=== PATIENT | female | born 1995 | race Caucasian/White ===

== ENCOUNTER 2016-03-29 10:08 | Emergency (ER) | payer OTHER ==
--- NOTE | 2016-03-29 11:24 | ED ---
General Adult HPI - General Chief complaint: Abdominal Pain Stated complaint: abd back pain Time Seen by Provider: 03/29/16 10:52 Source: patient, RN notes reviewed, old records reviewed Mode of arrival: ambulatory Limitations: no limitations - History of Present Illness Initial comments: This is a 20-year-old female here for evaluation today. This patient didn't stay for evaluation of abdominal pain and chronic bleeding. Patient has given childbirth is a about 3 months ago. Patient states she is having continuous bleeding since. She has follow-up with her OB who did deliver a baby and has had both vaginal exam and scheduled for follow-up appointment. Patient has had no imaging, patient and mainly concern for possible ovarian cancer. Patient has no urinary complaints, states she is sexually active and possibly could be again. - Related Data Home Medications Medication Instructions Recorded Confirmed Norethindrone [Kaur] 0.35 mg PO HS@2130 03/29/16 03/29/16 Previous Rx's Medication Instructions Recorded Nitrofurantoin Monohyd/M-Cryst 100 mg PO Q12HR #10 cap 03/29/16 [Macrobid] Allergies Allergy/AdvReac Type Severity Reaction Status Date / Time Penicillins Allergy Severe hives & SOB Verified 03/29/16 11:26 Review of Systems ROS Statement: Those systems with pertinent positive or pertinent negative responses have been documented in the HPI. ROS Other: All systems not noted in ROS Statement are negative. Past Medical History Past Medical History: No Reported History Additional Past Medical History / Comment(s): OB history: This is her first and she has been in and out of triage with contractions/pre term labor and hx of UTI. History of Any Multi-Drug Resistant Organisms: None Reported Past Surgical History: No Surgical Hx Reported Past Anesthesia/Blood Transfusion Reactions: No Reported Reaction Past Psychological History: Depression Additional Psychological History / Comment(s): never on meds Smoking Status: Former smoker Past Alcohol Use History: None Reported Past Drug Use History: None Reported - Past Family History Mother Family Medical History: Cancer, Hypertension Additional Family Medical History / Comment(s): ca- brain, lung, ovarian- not - diagnosed 2 years ago. Father Family Medical History: Cancer, Hypertension General Exam Limitations: no limitations General appearance: alert, in no apparent distress Head exam: Present: atraumatic, normocephalic, normal inspection Eye exam: Present: normal appearance, PERRL, EOMI. Absent: scleral icterus, conjunctival injection, periorbital swelling ENT exam: Present: normal exam, mucous membranes moist Neck exam: Present: normal inspection. Absent: tenderness, meningismus, lymphadenopathy Respiratory exam: Present: normal lung sounds bilaterally. Absent: respiratory distress, wheezes, rales, rhonchi, stridor Cardiovascular Exam: Present: regular rate, normal rhythm, normal heart sounds. Absent: systolic murmur, diastolic murmur, rubs, gallop, clicks GI/Abdominal exam: Present: soft, normal bowel sounds. Absent: distended, tenderness, guarding, rebound, rigid Extremities exam: Present: normal inspection, full ROM, normal capillary refill. Absent: tenderness, pedal edema, joint swelling, calf tenderness Back exam: Present: normal inspection Neurological exam: Present: alert, oriented X3, CN II-XII intact Psychiatric exam: Present: normal affect, normal mood Skin exam: Present: warm, dry, intact, normal color. Absent: rash Course Vital Signs 03/29/16 03/29/16 03/29/16 10:17 11:45 12:29 Temperature 97.8 F 97.9 F 97.5 F L Pulse Rate 74 71 69 Respiratory 18 14 14 Rate Blood Pressure 141/77 114/63 119/60 O2 Sat by Pulse 100 98 97 Oximetry Medical Decision Making - Medical Decision Making 20 female year with dysfunction uterine bleeding following , ultrasound is Negative Urine Positive for UTI We'll Treat, Patient Will Follow- Up with EMERGENCY MANAGEMENT SPECIALIST for Continued Evaluation and Treatment - Lab Data Lab Results 03/29/16 03/29/16 Range/Units 11:48 11:48 Urine Color Light Yellow Urine Appearance Cloudy H (Clear) Urine pH 6.0 (5.0-8.0) Ur Specific [place] 1.009 (1.001-1.035) Urine Protein Negative (Negative) Urine Glucose (UA) Negative (Negative) Urine Ketones Negative (Negative) Urine Blood Trace H (Negative) Urine Nitrate Positive H (Negative) Urine Bilirubin Negative (Negative) Urine Urobilinogen <2.0 (<2.0) mg/dL Ur Leukocyte Esterase Large H (Negative) Urine RBC 1 (0-5) /hpf Urine WBC 57 H (0-5) /hpf Ur Squamous Epith Cells 6 H (0-4) /hpf Urine Bacteria Rare H (None) /hpf Urine Mucus Rare H (None) /hpf Urine HCG, Qual Not Detected (Not Detectd) - Radiology Data Radiology results: report reviewed (Ultrasound pelvis is negative for acute disease), image reviewed Disposition Clinical Impression: UTI (urinary tract infection), Dysmenorrhea, DUB (dysfunctional uterine bleeding) Disposition: HOME SELF-CARE Condition: Good Instructions: Dysfunctional Uterine Bleeding (ED), Urinary Tract Infection in Women (ED) Prescriptions: Nitrofurantoin Monohyd/M-Cryst [Macrobid] 100 mg PO Q12HR #10 cap Referrals: None,Stated [Primary Care Provider] - 1-2 days
[2016-03-29 11:48] VITALS: RESP 14
[2016-03-29 12:32] VITALS: BP 119/60; PULSE 69; TEMP 97.5
[2016-03-29 12:53] LABS: Appearance,Urine Cloudy (Clear); Bacteria,Urine Rare /hpf; Bilirubin,Urine Negative (Negative); Glucose,Urine (UA) Negative (Negative); Ketones,Urine Negative (Negative); Leukocyte Esterase,Urine Large (Negative); Mucus,Urine Rare /hpf; Nitrite,Urine Positive (Negative); Particle Count 46723; Protein,Urine Negative (Negative); RBC,Urine 1 /hpf (0-5); Specific Gravity,Urine 1.009 (1.001-1.035); Squamous Epithelial Cell,Urine 6 /hpf (0-4); UA Billing (MACRO vs. MICRO) MICRO; Urobilinogen,Urine <2.0 mg/dL (<2.0); WBC,Urine 57 /hpf (0-5)
[2016-03-29] MEDS ORDERED: NITROFURANTOIN MONOHYD/M-CRYST 100 MG CAP PO STA (12:55)
--- NOTE | 2016-03-29 14:53 | US ---
EXAMINATION TYPE: US transvaginal DATE OF EXAM: 03/29/2016 12:37 PM COMPARISON: NONE CLINICAL HISTORY: Pelvic Pain, back pain TECHNIQUE: Transvaginal (TV) Date of LMP: Patient gave 12-12-15, no regular menses since before that EXAM MEASUREMENTS: Uterus: 8.2 x 5.2 x 3.8 cm cm Endometrial Stripe: 0.5 cm cm Right Ovary: 5.3 x 2.8 x 2.3 cm Left Ovary: 3.5 x 1.8 x 2.4 cm Grayscale, color Doppler, spectral Doppler imaging performed of the ovaries. Follicles are present bi laterally. There is color flow and vascular waveforms present bilaterally. 1. Uterus: Anteverted 2. Endometrium: 3. Right Ovary: prominent right ovary with multiple follicles notes 4. Left Ovary: wnl Spectral, color and waveform doppler imaging shows good arterial and venous flow within the ovaries ; there is no evidence for ovarian torsion. 5. Bilateral Adnexa: wnl 6. Posterior cul-de-sac: mild amount of free fluid IMPRESSION: No significant abnormality to account for patient's symptoms.
== END 2016-03-29 13:11 | disposition home or self-care (01) ==
LOC: EC 10:08
DX: N39.0 Urinary tract infection, site not specified (principal); N94.6 Dysmenorrhea, unspecified; N93.8 Other specified abnormal uterine and vaginal bleeding; Z79.3 Long term (current) use of hormonal contraceptives; Z88.0 Allergy status to penicillin; Z87.891 Personal history of nicotine dependence
CPT/HCPCS: 76830; 81001; 81025; 87491; 87591; 93975; 99284

== ENCOUNTER 2018-01-11 18:19 | Emergency (ER) | payer BC, OTHER ==
[2018-01-11 18:23] VITALS: RESP 18
[2018-01-11] MEDS ORDERED: SODIUM CHLORIDE 0.9% 1,000 ML IV STA (19:03)
--- NOTE | 2018-01-11 19:13 | ED ---
General Adult HPI - General Chief complaint: Abdominal Pain Stated complaint: poss cyst rupture Time Seen by Provider: 01/11/18 18:34 Source: patient, RN notes reviewed Mode of arrival: ambulatory Limitations: no limitations - History of Present Illness Initial comments: 22-year-old female presents to the emergency department for a chief complaint of lower abdominal pain and vaginal bleeding times one month. Patient describes the pain as a sharp stabbing pain in the right lower quadrant. She states this happens about 5 times per hour. She states it has been consistent over the past month. Patient states she has a history of ovarian cysts and states this feels similar. Patient also states she has vaginal bleeding. She states this has been consistent spotting over the past month. He shouldn't states that this is worsened after having sexual intercourse. Patient states she has an CARRIAGE SETTER appointment scheduled this coming month. She denies any fevers or chills. She denies any pain with urination. She denies any concern for sexually transmitted diseases. Denies any chance of Patient has been having normal bowel movements. Patient has no other complaints at this time including shortness of breath, chest pain, nausea or vomiting, headache, or visual changes. - Related Data Allergies Allergy/AdvReac Type Severity Reaction Status Date / Time Penicillins Allergy Severe hives & SOB Verified 01/11/18 18:43 Review of Systems ROS Statement: Those systems with pertinent positive or pertinent negative responses have been documented in the HPI. ROS Other: All systems not noted in ROS Statement are negative. Past Medical History Past Medical History: No Reported History Additional Past Medical History / Comment(s): OB history: This is her first and she has been in and out of triage with contractions/pre term labor and hx of UTI. History of Any Multi-Drug Resistant Organisms: None Reported Past Surgical History: No Surgical Hx Reported Past Anesthesia/Blood Transfusion Reactions: No Reported Reaction Past Psychological History: Depression Smoking Status: Current every day smoker Past Alcohol Use History: None Reported Past Drug Use History: None Reported - Past Family History Mother Family Medical History: Cancer, Hypertension Additional Family Medical History / Comment(s): ca- brain, lung, ovarian- not - diagnosed 2 years ago. Father Family Medical History: Cancer, Hypertension General Exam Limitations: no limitations General appearance: alert, in no apparent distress Head exam: Present: atraumatic, normocephalic, normal inspection Eye exam: Present: normal appearance, PERRL, EOMI. Absent: scleral icterus, conjunctival injection, periorbital swelling ENT exam: Present: normal exam, mucous membranes moist Neck exam: Present: normal inspection, full ROM. Absent: tenderness, meningismus, lymphadenopathy Respiratory exam: Present: normal lung sounds bilaterally. Absent: respiratory distress, wheezes, rales, rhonchi, stridor Cardiovascular Exam: Present: regular rate, normal rhythm, normal heart sounds. Absent: systolic murmur, diastolic murmur, rubs, gallop, clicks GI/Abdominal exam: Present: soft, tenderness (tenderness in the suprapubic and RLQ, no tenderness elsewhere in the lower abdomen), normal bowel sounds. Absent : distended, guarding, rebound, rigid, other (negative obturator, coon, rovsing) External exam: Present: normal external exam. Absent: erythema, swelling, lesions, lacerations, ecchymosis Speculum exam: Present: vaginal bleeding (minimal vaginal bleeding noted). Absent: erythema, vaginal discharge, cervical discharge By manual exam: Present: adnexal tenderness (right adnexal tenderness). Absent : cervical motion tenderness, adnexal mass, uterine enlargement, uterine tenderness Neurological exam: Present: alert, oriented X3, CN II-XII intact Psychiatric exam: Present: normal affect, normal mood Course Vital Signs 01/11/18 18:20 Temperature 98.6 F Pulse Rate 90 Respiratory 18 Rate Blood Pressure 121/79 O2 Sat by Pulse 100 Oximetry Medical Decision Making - Medical Decision Making 22-year-old female presents to the emergency department for a chief complaint of lower abdominal pain and vaginal bleeding times one month. Patient has a history of ovarian cysts. Patient states this feels like ovarian cysts. She states pain is worse after intercourse. On exam patient has mild right lower quadrant and suprapubic tenderness. Patient has minimal vaginal bleeding noted on pelvic exam. Gonorrhea and chlamydia pending at this time. Trichomonas negative. CBC and CMP are unremarkable. Urine does not show any evidence of infection. HCG is negative. Ultrasound shows 2.1 cm complex lesion noted likely representing involuting cyst on the left ovary. This could be the cause of patient's pain however as pain is on the right I did offer further imaging such as x-ray or computed tomography scan of the abdomen. Patient states she would rather follow up with her CAR[facility]AGE SETTER and return here if she has any worsening symptoms for further imaging. She will be discharged home with sections to take Motrin for pain and to follow up with CARRIAGE SETTER at her scheduled appointment or earlier if possible. Patient agrees to return here if she has worsening symptoms. - Lab Data Result diagrams: 01/11/18 19:40 01/11/18 19:40 Lab Results 01/11/18 01/11/18 01/11/18 Range/Units 19:40 19:40 19:40 WBC 7.9 (3.8-10.6) k/uL RBC 4.28 (3.80-5.40) m/uL Hgb 13.7 (11.4-16.0) gm/dL Hct 39.9 (34.0-46.0) % MCV 93.2 (80.0-100.0) fL MCH 32.0 (25.0-35.0) pg MCHC 34.3 (31.0-37.0) g/dL RDW 13.2 (11.5-15.5) % Plt Count 227 (150-450) k/uL Neutrophils % 63 % Lymphocytes % 27 % Monocytes % 6 % Eosinophils % 3 % Basophils % 0 % Neutrophils # 5.0 (1.3-7.7) k/uL Lymphocytes # 2.1 (1.0-4.8) k/uL Monocytes # 0.4 (0-1.0) k/uL Eosinophils # 0.2 (0-0.7) k/uL Basophils # 0.0 (0-0.2) k/uL Sodium 141 (137-145) mmol/L Potassium 3.9 (3.5-5.1) mmol/L Chloride 104 (98-107) mmol/L Carbon Dioxide 27 (22-30) mmol/L Anion Gap 10 mmol/L BUN 13 (7-17) mg/dL Creatinine 0.66 (0.52-1.04) mg/dL Est GFR (CKD-EPI)AfAm >90 (>60 ml/min/1.73 sqM) Est GFR (CKD-EPI)NonAf >90 (>60 ml/min/1.73 sqM) Glucose 96 (74-99) mg/dL Calcium 10.1 (8.4-10.2) mg/dL Total Bilirubin 0.3 (0.2-1.3) mg/dL AST 25 (14-36) U/L ALT 19 (9-52) U/L Alkaline Phosphatase 53 (38-126) U/L Total Protein 7.5 (6.3-8.2) g/dL Albumin 4.6 (3.5-5.0) g/dL Amylase 75 (30-110) U/L Lipase 136 (23-300) U/L Urine Color Light Yellow Urine Appearance Clear (Clear) Urine pH 6.0 (5.0-8.0) Ur Specific [place] 1.013 (1.001-1.035) Urine Protein Negative (Negative) Urine Glucose (UA) Negative (Negative) Urine Ketones Negative (Negative) Urine Blood Small H (Negative) Urine Nitrite Negative (Negative) Urine Bilirubin Negative (Negative) Urine Urobilinogen <2.0 (<2.0) mg/dL Ur Leukocyte Esterase Moderate H (Negative) Urine RBC 1 (0-5) /hpf Urine WBC 2 (0-5) /hpf Ur Squamous Epith Cells 3 (0-4) /hpf Urine Mucus Rare H (None) /hpf Urine HCG, Qual (Not Detectd) Trichomonas Ag (Rapid) (Negative) 01/11/18 01/11/18 Range/Units 19:40 19:40 WBC (3.8-10.6) k/uL RBC (3.80-5.40) m/uL Hgb (11.4-16.0) gm/dL Hct (34.0-46.0) % MCV (80.0-100.0) fL MCH (25.0-35.0) pg MCHC (31.0-37.0) g/dL RDW (11.5-15.5) % Plt Count (150-450) k/uL Neutrophils % % Lymphocytes % % Monocytes % % Eosinophils % % Basophils % % Neutrophils # (1.3-7.7) k/uL Lymphocytes # (1.0-4.8) k/uL Monocytes # (0-1.0) k/uL Eosinophils # (0-0.7) k/uL Basophils # (0-0.2) k/uL Sodium (137-145) mmol/L Potassium (3.5-5.1) mmol/L Chloride (98-107) mmol/L Carbon Dioxide (22-30) mmol/L Anion Gap mmol/L BUN (7-17) mg/dL Creatinine (0.52-1.04) mg/dL Est GFR (CKD-EPI)AfAm (>60 ml/min/1.73 sqM) Est GFR (CKD-EPI)NonAf (>60 ml/min/1.73 sqM) Glucose (74-99) mg/dL Calcium (8.4-10.2) mg/dL Total Bilirubin (0.2-1.3) mg/dL AST (14-36) U/L ALT (9-52) U/L Alkaline Phosphatase (38-126) U/L Total Protein (6.3-8.2) g/dL Albumin (3.5-5.0) g/dL Amylase (30-110) U/L Lipase (23-300) U/L Urine Color Urine Appearance (Clear) Urine pH (5.0-8.0) Ur Specific [place] (1.001-1.035) Urine Protein (Negative) Urine Glucose (UA) (Negative) Urine Ketones (Negative) Urine Blood (Negative) Urine Nitrite (Negative) Urine Bilirubin (Negative) Urine Urobilinogen (<2.0) mg/dL Ur Leukocyte Esterase (Negative) Urine RBC (0-5) /hpf Urine WBC (0-5) /hpf Ur Squamous Epith Cells (0-4) /hpf Urine Mucus (None) /hpf Urine HCG, Qual Not Detected (Not Detectd) Trichomonas Ag (Rapid) Negative (Negative) Disposition Clinical Impression: Dysfunctional uterine bleeding, Pelvic pain Disposition: HOME SELF-CARE Condition: Good Instructions: Dysfunctional Uterine Bleeding (ED), Pelvic Pain in Women (ED) Additional Instructions: Please take Motrin for pain. Please follow-up with your CARRIAGE SETTER at your appointment or earlier if possible. Follow-up with primary care. Return to the emergency department if you have any worsening symptoms. Is patient prescribed a controlled substance at d/c from ED?: No Referrals: Coby Wick MD [STAFF PHYSICIAN] - 1-2 days Time of Disposition: 21:02
[2018-01-11 19:59] LABS: Basophils % (A) 0 %; Eosinophils # (A) 0.2 k/uL (0-0.7); Eosinophils % (A) 3 %; HCT 39.9 % (34.0-46.0); HGB 13.7 gm/dL (11.4-16.0); Lymphocytes # (A) 2.1 k/uL (1.0-4.8); Lymphocytes % (A) 27 %; MCHC 34.3 g/dL (31.0-37.0); MCV 93.2 fL (80.0-100.0); Mean Platelet Volume 7.2; Monocytes # (A) 0.4 k/uL (0-1.0); Monocytes % (A) 6 %; Neutrophils % (A) 63 %; Platelet Count 227 k/uL (150-450); RBC 4.28 m/uL (3.80-5.40); RDW 13.2 % (11.5-15.5); WBC 7.9 k/uL (3.8-10.6)
[2018-01-11 20:01] LABS: Appearance,Urine Clear (Clear); Bilirubin,Urine Negative (Negative); Blood,Urine Small (Negative); Color,Urine Light Yellow; Glucose,Urine (UA) Negative (Negative); Ketones,Urine Negative (Negative); Leukocyte Esterase,Urine Moderate (Negative); Mucus,Urine Rare /hpf; Nitrite,Urine Negative (Negative); Protein,Urine Negative (Negative); RBC,Urine 1 /hpf (0-5); Specific Gravity,Urine 1.013 (1.001-1.035); Squamous Epithelial Cell,Urine 3 /hpf (0-4); Urobilinogen,Urine <2.0 mg/dL (<2.0); WBC,Urine 2 /hpf (0-5)
[2018-01-11 20:11] LABS: ALT 19 U/L (9-52); AST 25 U/L (14-36); Albumin 4.6 g/dL (3.5-5.0); Alkaline Phosphatase 53 U/L (38-126); Amylase 75 U/L (30-110); Anion Gap 10 mmol/L; Blood Urea Nitrogen 13 mg/dL (7-17); Calcium 10.1 mg/dL (8.4-10.2); Carbon Dioxide 27 mmol/L (22-30); Chloride 104 mmol/L (98-107); Glucose 96 mg/dL (74-99); Lipase 136 U/L (23-300); Potassium 3.9 mmol/L (3.5-5.1); Sodium 141 mmol/L (137-145); Total Bilirubin 0.3 mg/dL (0.2-1.3); Total Protein 7.5 g/dL (6.3-8.2)
--- NOTE | 2018-01-11 20:34 | US ---
EXAMINATION TYPE: US transvaginal DATE OF EXAM: 01/11/2018 COMPARISON: NONE CLINICAL HISTORY: Pain. RLQ pain x 1 month, irregular cycles Date of LMP: 12/27/2017 TECHNIQUE: TV. EXAM MEASUREMENTS: Uterus: 9.1 x 4.8 x 4.2 cm Endometrial Stripe: 1.6 cm Right Ovary: 4.7 x 2.4 x 2.6 cm Left Ovary: 4.4 x 4.2 x 2.5 cm 1. Uterus: Anteverted wnl 2. Endometrium: normal for cycle 3. Right Ovary: multiple follicles seen, wnl 4. Left Ovary: 2.1cm complex lesion noted; likely represents involuting cyst Spectral, color and waveform doppler imaging shows good arterial and venous flow within the ovaries ; there is no evidence for ovarian torsion. 5. Bilateral Adnexa: mild free fluid lt adnexa 6. Posterior cul-de-sac: mild free fluid toward the left IMPRESSION: No acute process.
[2018-01-11 21:40] VITALS: BP 117/73; PULSE 80; TEMP 98.2
[2018-01-13 08:14] LABS: N. gonorrhoeae,PCR Negative (Neg,Equiv); Neisseria Source Vagina
[2018-01-13 08:46] LABS: C. trachomatis,PCR Positive (Neg,Equiv); Chlamydia trachomatis Source Vagina
== END 2018-01-11 21:33 | disposition home or self-care (01) ==
LOC: EC 18:19
DX: R10.31 Right lower quadrant pain (principal); N93.8 Other specified abnormal uterine and vaginal bleeding; N83.292 Other ovarian cyst, left side; F17.200 Nicotine dependence, unspecified, uncomplicated; Z88.0 Allergy status to penicillin; Z80.41 Family history of malignant neoplasm of ovary
CPT/HCPCS: 36415; 76830; 80053; 81001; 81025; 82150; 83690; 85025; 87086; 87491; 87591; 87808; 93975; 96360; 99284

== ENCOUNTER → 2018-03-05 | Outpatient (CLI) | payer OTHER ==
[2018-03-06 04:17] LABS: HIV 1 AB Non-Reactive (Non-Reactive); HIV AB P24 Non-Reactive (Non-Reactive); HIV P24 AG Non-Reactive (Non-Reactive)
== END | disposition home or self-care (01) ==
LOC: LABWHC1 14:44
PROVIDERS: ATTEND Obstetrics & Gynecology
DX: Z11.3 Encounter for screening for infections with a predominantly sexual mode of transmission (principal); Z01.419 Encounter for gynecological examination (general) (routine) without abnormal findings
CPT/HCPCS: 36415; 86695; 86696; 87340; 87390

== ENCOUNTER 2019-08-22 20:21 | Emergency (ER) | payer OTHER ==
[2019-08-22 20:57] VITALS: TEMP 98.7
[2019-08-22] MEDS ORDERED: KETOROLAC 30 MG/ML 1 ML VIAL IVP STA (21:19)
[2019-08-22] MEDS ORDERED: SODIUM CHLORIDE 0.9% 1,000 ML IV STA (21:19)
[2019-08-22] MEDS ORDERED: ONDANSETRON 4 MG/2 ML VIAL IVP STA (21:19)
[2019-08-22 21:38] LABS: Basophils # (A) 0.1 k/uL (0-0.2); Basophils % (A) 1 %; Eosinophils # (A) 0.2 k/uL (0-0.7); Eosinophils % (A) 4 %; HCT 41.4 % (34.0-46.0); HGB 13.2 gm/dL (11.4-16.0); Lymphocytes # (A) 1.7 k/uL (1.0-4.8); Lymphocytes % (A) 29 %; MCH 30.1 pg (25.0-35.0); MCHC 31.8 g/dL (31.0-37.0); MCV 94.7 fL (80.0-100.0); Mean Platelet Volume 8.6; Monocytes # (A) 0.4 k/uL (0-1.0); Monocytes % (A) 7 %; Neutrophils # (A) 3.2 k/uL (1.3-7.7); Neutrophils % (A) 57 %; Platelet Count 223 k/uL (150-450); RBC 4.37 m/uL (3.80-5.40); RDW 12.6 % (11.5-15.5); WBC 5.7 k/uL (3.8-10.6)
--- NOTE | 2019-08-22 21:42 | ED ---
Abdominal Pain HPI - General Chief Complaint: Abdominal Pain Stated Complaint: Abdominal pain Time Seen by Provider: 08/22/19 21:00 Source: patient Mode of arrival: ambulatory Limitations: no limitations - History of Present Illness Initial Comments: Patient is a 24-year-old female presents emergency Department with complaints of abdominal pain, nausea, vomiting. Patient states she's been noticing increased abdominal discomfort over the past 2 weeks but over the past 3 days she states the pain has intensified. She states the last 3 days she is also not been able to eat or drink and has been having nausea and vomiting. She states she's been having regular bowel movements. She denies any fever or chills. She states she does have history of ovarian cyst. She denies any previous abdominal surgeries. She denies any chest pain or shortness of breath. She denies being at this time. She has no further complaints at this time. Upon arrival to the ER, her vital signs are stable. - Related Data Previous Rx's Medication Instructions Recorded Cephalexin [Keflex] 500 mg PO BID 5 Days #10 cap 08/22/19 Allergies Allergy/AdvReac Type Severity Reaction Status Date / Time Penicillins Allergy Severe hives & SOB Verified 08/22/19 21:43 Review of Systems ROS Statement: Those systems with pertinent positive or pertinent negative responses have been documented in the HPI. ROS Other: All systems not noted in ROS Statement are negative. Past Medical History Past Medical History: No Reported History Additional Past Medical History / Comment(s): OB history: This is her first and she has been in and out of triage with contractions/pre term labor and hx of UTI. History of Any Multi-Drug Resistant Organisms: None Reported Past Surgical History: No Surgical Hx Reported Past Anesthesia/Blood Transfusion Reactions: No Reported Reaction Past Psychological History: Depression Smoking Status: Light tobacco smoker Past Alcohol Use History: None Reported Past Drug Use History: None Reported - Past Family History Mother Family Medical History: Cancer, Hypertension Additional Family Medical History / Comment(s): ca- brain, lung, ovarian- not - diagnosed 2 years ago. Father Family Medical History: Cancer, Hypertension General Exam - General Exam Comments Initial Comments: GENERAL: Well-appearing, well-nourished and in no acute distress. HEAD: Atraumatic, normocephalic. EYES: Pupils equal round and reactive to light, extraocular movements intact, sclera anicteric, conjunctiva are normal. ENT: TMs normal, nares patent, oropharynx clear without exudates. Moist mucous membranes. NECK: Normal range of motion, supple without lymphadenopathy or JVD. LUNGS: Breath sounds clear to auscultation bilaterally and equal. No wheezes rales or rhonchi. HEART: Regular rate and rhythm without murmurs, rubs or gallops. ABDOMEN: Tender to palpation of the left lower quadrant, suprapubic, increased tenderness on the right lower quadrant. Soft, normoactive bowel sounds. No guarding, no rebound. No masses appreciated. : Deferred EXTREMITIES: Normal range of motion, no pitting or edema. No clubbing or cyanosis. NEUROLOGICAL: Normal speech, normal gait. PSYCH: Normal mood, normal affect. SKIN: Warm, Dry, normal turgor, no rashes or lesions noted. Limitations: no limitations Course Vital Signs 08/22/19 20:54 Temperature 98.7 F Pulse Rate 86 Respiratory 16 Rate Blood Pressure 118/82 O2 Sat by Pulse 99 Oximetry Medical Decision Making - Medical Decision Making Patient is a 24-year-old female here for abdominal pain, nausea, vomiting 3 days. Her vitals are stable. Exam reveals tenderness in the left lower quadrant, suprapubic, more tenderness on the right lower quadrant. Labwork shows no acute abnormalities, lactic acid is normal, lipase is normal, urine does show a large amount leukocyte Estrace, she is not . CT of the abdomen shows no evidence for appendicitis, no other acute findings. Patient was given pain control, Zofran and fluids. She does report improvement in her symptoms. I discussed with patient that this could be a mild UTI and/or a viral gastroenteritis.. Patient will be started on Keflex. She is in agreement with this plan of care. She'll follow-up with her PCP. Patient is stable for discharge. Return parameters were discussed with the patient she verbalized understanding. - Lab Data Result diagrams: 08/22/19 21:25 08/22/19 21: Lab Results 08/22/19 08/22/19 08/22/19 Range/Units 21:25 21:25 21:25 WBC 5.7 (3.8-10.6) k/uL RBC 4.37 (3.80-5.40) m/uL Hgb 13.2 (11.4-16.0) gm/dL Hct 41.4 (34.0-46.0) % MCV 94.7 (80.0-100.0) fL MCH 30.1 (25.0-35.0) pg MCHC 31.8 (31.0-37.0) g/dL RDW 12.6 (11.5-15.5) % Plt Count 223 (150-450) k/uL Neutrophils % 57 % Lymphocytes % 29 % Monocytes % 7 % Eosinophils % 4 % Basophils % 1 % Neutrophils # 3.2 (1.3-7.7) k/uL Lymphocytes # 1.7 (1.0-4.8) k/uL Monocytes # 0.4 (0-1.0) k/uL Eosinophils # 0.2 (0-0.7) k/uL Basophils # 0.1 (0-0.2) k/uL Sodium (137-145) mmol/L Potassium (3.5-5.1) mmol/L Chloride (98-107) mmol/L Carbon Dioxide (22-30) mmol/L Anion Gap mmol/L BUN (7-17) mg/dL Creatinine (0.52-1.04) mg/dL Est GFR (CKD-EPI)AfAm (>60 ml/min/1.73 sqM) Est GFR (CKD-EPI)NonAf (>60 ml/min/1.73 sqM) Glucose (74-99) mg/dL Plasma Lactic Acid Arnold (0.7-2.0) mmol/L Calcium (8.4-10.2) mg/dL Total Bilirubin (0.2-1.3) mg/dL AST (14-36) U/L ALT (4-34) U/L Alkaline Phosphatase (38-126) U/L Total Protein (6.3-8.2) g/dL Albumin (3.5-5.0) g/dL Amylase (30-110) U/L Lipase (23-300) U/L Urine Color Yellow Urine Appearance Turbid H (Clear) Urine pH 6.5 (5.0-8.0) Ur Specific Willow 1.017 (1.001-1.035) Urine Protein Negative (Negative) Urine Glucose (UA) Negative (Negative) Urine Ketones Negative (Negative) Urine Blood Negative (Negative) Urine Nitrite Negative (Negative) Urine Bilirubin Negative (Negative) Urine Urobilinogen <2.0 (<2.0) mg/dL Ur Leukocyte Esterase Large H (Negative) Urine RBC 5 (0-5) /hpf Urine WBC 4 (0-5) /hpf Ur Squamous Epith Cells 3 (0-4) /hpf Amorphous Sediment Moderate H (None) /hpf Urine Mucus Occasional H (None) /hpf Urine HCG, Qual Not Detected (Not Detectd) 08/22/19 08/22/19 Range/Units 21:25 21:25 WBC (3.8-10.6) k/uL RBC (3.80-5.40) m/uL Hgb (11.4-16.0) gm/dL Hct (34.0-46.0) % MCV (80.0-100.0) fL MCH (25.0-35.0) pg MCHC (31.0-37.0) g/dL RDW (11.5-15.5) % Plt Count (150-450) k/uL Neutrophils % % Lymphocytes % % Monocytes % % Eosinophils % % Basophils % % Neutrophils # (1.3-7.7) k/uL Lymphocytes # (1.0-4.8) k/uL Monocytes # (0-1.0) k/uL Eosinophils # (0-0.7) k/uL Basophils # (0-0.2) k/uL Sodium 139 (137-145) mmol/L Potassium 4.4 (3.5-5.1) mmol/L Chloride 105 (98-107) mmol/L Carbon Dioxide 26 (22-30) mmol/L Anion Gap 8 mmol/L BUN 13 (7-17) mg/dL Creatinine 0.67 (0.52-1.04) mg/dL Est GFR (CKD-EPI)AfAm >90 (>60 ml/min/1.73 sqM) Est GFR (CKD-EPI)NonAf >90 (>60 ml/min/1.73 sqM) Glucose 87 (74-99) mg/dL Plasma Lactic Acid Arnold 1.0 (0.7-2.0) mmol/L Calcium 9.8 (8.4-10.2) mg/dL Total Bilirubin 0.2 (0.2-1.3) mg/dL AST 22 (14-36) U/L ALT 11 (4-34) U/L Alkaline Phosphatase 51 (38-126) U/L Total Protein 7.0 (6.3-8.2) g/dL Albumin 4.5 (3.5-5.0) g/dL Amylase 58 (30-110) U/L Lipase 118 (23-300) U/L Urine Color Urine Appearance (Clear) Urine pH (5.0-8.0) Ur Specific Willow (1.001-1.035) Urine Protein (Negative) Urine Glucose (UA) (Negative) Urine Ketones (Negative) Urine Blood (Negative) Urine Nitrite (Negative) Urine Bilirubin (Negative) Urine Urobilinogen (<2.0) mg/dL Ur Leukocyte Esterase (Negative) Urine RBC (0-5) /hpf Urine WBC (0-5) /hpf Ur Squamous Epith Cells (0-4) /hpf Amorphous Sediment (None) /hpf Urine Mucus (None) /hpf Urine HCG, Qual (Not Detectd) Disposition Clinical Impression: Lower abdominal pain, Nausea & vomiting, UTI (urinary tract infection) Disposition: HOME SELF-CARE Condition: Stable Instructions (If sedation given, give patient instructions): Abdominal Pain (ED) Additional Instructions: Please return to the Emergency Department if symptoms worsen or any other concerns. Take antibiotic as prescribed. Follow-up with PCP if symptoms persist. Prescriptions: Cephalexin [Keflex] 500 mg PO BID 5 Days #10 cap Is patient prescribed a controlled substance at d/c from ED?: No Referrals: None,Stated [Primary Care Provider] - 1-2 days
[2019-08-22 21:51] LABS: ALT 11 U/L (4-34); AST 22 U/L (14-36); African American GFR (CKD) >90 (>60 ml/min/1.73 sqM); Albumin 4.5 g/dL (3.5-5.0); Alkaline Phosphatase 51 U/L (38-126); Amylase 58 U/L (30-110); Anion Gap 8 mmol/L; Blood Urea Nitrogen 13 mg/dL (7-17); Calcium 9.8 mg/dL (8.4-10.2); Carbon Dioxide 26 mmol/L (22-30); Chloride 105 mmol/L (98-107); Glucose 87 mg/dL (74-99); Non-African American GFR(CKD) >90 (>60 ml/min/1.73 sqM); Potassium 4.4 mmol/L (3.5-5.1); Sodium 139 mmol/L (137-145); Total Bilirubin 0.2 mg/dL (0.2-1.3)
[2019-08-22 21:54] LABS: Amorphous Sediment,Urine Moderate /hpf; Appearance,Urine Turbid (Clear); Bilirubin,Urine Negative (Negative); Blood,Urine Negative (Negative); Color,Urine Yellow; Glucose,Urine (UA) Negative (Negative); Ketones,Urine Negative (Negative); Leukocyte Esterase,Urine Large (Negative); Mucus,Urine Occasional /hpf; Nitrite,Urine Negative (Negative); PH, Urine 6.5 (5.0-8.0); Protein,Urine Negative (Negative); RBC,Urine 5 /hpf (0-5); Specific Gravity,Urine 1.017 (1.001-1.035); Squamous Epithelial Cell,Urine 3 /hpf (0-4); Urobilinogen,Urine <2.0 mg/dL (<2.0); WBC,Urine 4 /hpf (0-5)
--- NOTE | 2019-08-22 22:29 | CT ---
EXAMINATION TYPE: CT abdomen pelvis w con DATE OF EXAM: 08/22/2019 COMPARISON: None HISTORY: Right lower quadrant pain. CT DLP: 679.4 mGycm Automated exposure control for dose reduction was used. CONTRAST: Performed with IV Contrast, patient injected with 100 mL of Isovue 300. Lung bases are clear. There is no pleural effusion. Heart size is normal. Liver spleen stomach pancreas appear normal. Gallbladder is contracted. Bile ducts are not dilated. T here is no adrenal mass. Kidneys show satisfactory contrast opacification. There is no hydronephrosis . Ureters are not dilated. Bladder distends smoothly. There is no inguinal hernia. Lumbar vertebra pierre ve normal spacing and alignment. Posterior elements are intact. Sacroiliac joints appear normal. Bony pelvis is intact. Uterus is anteverted. There is no pelvic mass. There is no mesenteric edema. There is no ascites or free air. There is no sign of bowel obstruction. Appendix appears normal. Appendix is inferior and medial and measures up to 6 mm. IMPRESSION: Normal CT scan abdomen and pelvis. Normal appendix.
[2019-08-22] MEDS ORDERED: ONDANSETRON 4 MG ODT STARTER PACK 2 TAB BTL PO STA (22:43)
[2019-08-22 23:10] VITALS: BP 120/78; PULSE 80; RESP 18
== END 2019-08-22 23:10 | disposition home or self-care (01) ==
LOC: EC 20:21
DX: N39.0 Urinary tract infection, site not specified (principal); F17.210 Nicotine dependence, cigarettes, uncomplicated; Z88.0 Allergy status to penicillin; Z87.42 Personal history of other diseases of the female genital tract
CPT/HCPCS: 36415; 80053; 82150; 83605; 83690; 85025; 81001; 81025; 74177; 99284; 96374; 96375; 96361 ×2; J2405; J1885; S0119; Q9967

== ENCOUNTER 2021-02-23 07:05 | Day surgery (SDC) | payer OTHER ==
[2021-02-15 18:37] VITALS: BMI 25.0
[~2021-02-23 07:05] MED LIST: DEXAMETHASONE SOD PHOSPHATE 4 MG/ML 1 ML VIAL IV ONE; HYDROmorphone 0.5 MG/0.5 ML SYRINGE IVP PRN; LACTATED RINGERS 1,000 ML IV SCH; LIDOCAINE 1% (10MG/ML) FOR IV START INTRADERMA PRN; ONDANSETRON 4 MG/2 ML VIAL IVP ONE; Pre Op ABX Message 1 EACH MISC MISCELLANE ONE
--- NOTE | 2021-02-23 07:15 | P.HPOB ---
History of Present Illness H&P Date: 02/23/21 Chief Complaint: BROOKLYN 2 and pelvic pain 25-year-old presents for loop electrocautery excision procedure for an ASCUS Pap with BROOKLYN-2 on colposcopy, as well as a right neck cystic laparoscopy and possible cauterization of endometriosis due to ongoing pelvic pain. Review of Systems All systems: negative Constitutional: Denies chills, Denies fever Eyes: denies blurred vision, denies pain Ears, nose, mouth and throat: Denies headache, Denies sore throat Cardiovascular: Denies chest pain, Denies shortness of breath Respiratory: Denies cough Gastrointestinal: Denies abdominal pain, Denies diarrhea, Denies nausea, Denies vomiting Genitourinary: Denies dysuria, Denies hematuria Musculoskeletal: Denies myalgias Integumentary: Denies pruritus, Denies rash Neurological: Denies numbness, Denies weakness Psychiatric: Denies anxiety, Denies depression Endocrine: Denies fatigue, Denies weight change Past Medical History Past Medical History: Asthma Additional Past Medical History / Comment(s): Asthma as child. Hypoglycemic. Poss endometriosis, abn PAP tests, abd pain, heavy menses History of Any Multi-Drug Resistant Organisms: None Reported Past Surgical History: No Surgical Hx Reported Additional Past Surgical History / Comment(s): [place] teeth. Colonoscopy Past Anesthesia/Blood Transfusion Reactions: Motion Sickness Smoking Status: Former smoker, Vaper - Past Family History Mother Family Medical History: Cancer, Hypertension Additional Family Medical History / Comment(s): Cervical cancer; poss blood clot. (Mat Grandmother had ca- brain, lung, ovarian) Father Family Medical History: Cancer, Hypertension Additional Family Medical History / Comment(s): skin, lung cancer Medications and Allergies Home Medications Medication Instructions Recorded Confirmed Type Ergocalciferol [Vitamin D2 (1250 1,250 mcg PO WE 02/15/21 02/15/21 History Mcg = 75677 Iu)] Ferrous Sulfate [Feosol] 325 mg PO DAILY 02/15/21 02/15/21 History traMADol HCl [Ultram] 50 mg PO Q6HR PRN 02/15/21 02/15/21 History Allergies Allergy/AdvReac Type Severity Reaction Status Date / Time Penicillins Allergy Severe hives & SOB Verified 02/15/21 18:16 Exam Osteopathic Statement: *. No significant issues noted on an osteopathic structural exam other than those noted in the History and Physical/Consult. Heart: Regular rate and rhythm Lungs: Clear to auscultation bilaterally Abdomen: Soft, nontender Extremities: Negative Homans sign Assessment and Plan (1) BROOKLYN II (cervical intraepithelial neoplasia II) Current Visit: Yes Status: Acute Code(s): N87.1 - MODERATE CERVICAL DY SPLASIA SNOMED Code(s): 450529543 (2) Pelvic pain Current Visit: Yes Status: Acute Code(s): R10.2 - PELVIC AND PERINEAL PAIN SNOMED Code(s): 45105822 Plan: 1. Loop electrocautery excision procedure, laparoscopy with possible cauterization of endometriosis
[2021-02-23] MEDS ORDERED: SCOPOLAMINE 1.5MG/72HR PATCH TRANSDERM ONE (07:46)
[2021-02-23] MEDS ORDERED: LIDOCAINE 1% INJ 10MG/ML (20 ML MDV) ONE (08:25)
[2021-02-23] MEDS ORDERED: PROPOFOL 10 MG/ML 20 ML VIAL IV ONE (08:25)
[2021-02-23] MEDS ORDERED: SUCCINYLCHOLINE CHLORIDE 100 MG/5 ML SYR IV ONE (08:25)
[2021-02-23] MEDS ORDERED: fentaNYL (PF) 50 MCG/ML 2 ML AMP ONE (08:25)
[2021-02-23] MEDS ORDERED: KETOROLAC 15 MG/ML 1 ML VIAL ONE (08:25)
[2021-02-23] MEDS ORDERED: MIDAZOLAM 2 MG/2 ML VIAL ONE (08:25)
[2021-02-23] MEDS ORDERED: BUPIVACAINE (PF) 0.25% 30 ML VIAL SQ ONE (09:04)
--- NOTE | 2021-02-23 09:12 | P.OP ---
Date of Procedure: 02/23/21 Preoperative Diagnosis: 1. BROOKLYN 2 2. pelvic pain Postoperative Diagnosis: 1. BROOK[place] 2 2. pelvic pain 3. endometriosis Procedure(s) Performed: LEEP and laparoscopy with cauterization of endometriosis Anesthesia: PILAR Surgeon: Cindi Valdes Estimated Blood Loss (ml): 3 IV fluids (ml): 200 Urine output (ml): 15 Pathology: other (Cervical cone) Condition: stable Disposition: PACU Operative Findings: Normal uterus, tubes, ovaries. There was a small amount of endometriosis in the posterior cul-de-sac and in the ovarian fossa. Description of Procedure: Patient is taken the operating room and general anesthesia was obtained without difficulty. She is prepped draped in normal sterile fashion dorsal lithotomy position, legs placed in the Holger stirrups. Bladder was drained of all urine. A coated bivalve speculum was placed in the vagina and dissection. The 2 cm loop cautery was used to obtain a cervical specimen. The first swipe was the anterior lip, the second swipe was posterior lip. The ball cautery was then used to obtain excellent hemostasis. The kroner manipulator was then placed. Attention was then turned to the abdomen and gloves were changed. A 10 mm infraumbilical incision was made the scalpel and 10 mm optical trocar was placed under direct visualization. A 5 mm suprapubic incision was made and a 5 mm optical trocar was placed under direct visualization. Survey of the pelvis revealed a normal uterus, tubes and ovaries. There is no scarring in her pelvis, there is some endometriosis and defects in the peritoneum and the posterior cul-de-sac. These areas were then cauterized with the cautery. All instruments removed from the pelvis and vagina. The 10 mm infraumbilical incision was closed with Vicryl and the fascial layer and then 4-0 Vicryl in a subcuticular fashion. The 5 mm incision was closed with 4-0 Vicryl subcuticular fashion. Patient to our procedure well, sponge and instrument counts correct 2. She was taken to recovery in stable condition.
[2021-02-23 09:23] VITALS: RESP 16; TEMP 97.2
[2021-02-23 10:37] VITALS: BP 101/62; PULSE 63
== END 2021-02-23 10:58 | disposition home or self-care (01) ==
LOC: OR 07:05
PROVIDERS: ATTEND Obstetrics & Gynecology
DX: N94.6 Dysmenorrhea, unspecified (principal); N80.9 Endometriosis, unspecified; N72 Inflammatory disease of cervix uteri; N92.0 Excessive and frequent menstruation with regular cycle; N87.1 Moderate cervical dysplasia; R10.2 Pelvic and perineal pain; J45.909 Unspecified asthma, uncomplicated; F32.A Depression, unspecified; E16.2 Hypoglycemia, unspecified; F41.9 Anxiety disorder, unspecified; Z87.891 Personal history of nicotine dependence; Z79.891 Long term (current) use of opiate analgesic; Z88.0 Allergy status to penicillin
CPT/HCPCS: 81025; 88307; 57522; J2250; J1100; J2405; J2001; J3010; J1885; J0330; J2704; J1170

== ENCOUNTER 2021-03-11 17:44 | Emergency (ER) | payer OTHER ==
[2021-03-11] MEDS ORDERED: FERRIC SUBSULFATE (MONSELS) JAR TOPICAL ONE ×3 (18:41→18:55)
[2021-03-11 18:59] VITALS: TEMP 98.6
[2021-03-11 19:11] LABS: Basophils % (A) 1 %; Eosinophils # (A) 0.1 k/uL (0-0.7); Eosinophils % (A) 1 %; HCT 37.6 % (34.0-46.0); HGB 12.3 gm/dL (11.4-16.0); Lymphocytes % (A) 16 %; MCHC 32.6 g/dL (31.0-37.0); MCV 94.9 fL (80.0-100.0); Mean Platelet Volume 7.7; Monocytes # (A) 0.3 k/uL (0-1.0); Monocytes % (A) 5 %; Neutrophils # (A) 4.8 k/uL (1.3-7.7); Neutrophils % (A) 76 %; Platelet Count 241 k/uL (150-450); RBC 3.96 m/uL (3.80-5.40); WBC 6.3 k/uL (3.8-10.6)
[2021-03-11 19:16] LABS: Appearance,Urine Clear (Clear); Bilirubin,Urine Negative (Negative); Blood,Urine Large (Negative); Color,Urine Light Red; Glucose,Urine (UA) Negative (Negative); Ketones,Urine Negative (Negative); Leukocyte Esterase,Urine Moderate (Negative); Mucus,Urine Occasional /hpf; Nitrite,Urine Negative (Negative); PH, Urine 6.5 (5.0-8.0); Protein,Urine 1+ (Negative); RBC,Urine >182 /hpf (0-5); Specific Gravity,Urine 1.022 (1.001-1.035); Squamous Epithelial Cell,Urine 2 /hpf (0-4); Urobilinogen,Urine <2.0 mg/dL (<2.0); WBC,Urine 28 /hpf (0-5)
[2021-03-11 19:22] LABS: Potassium 4.2 mmol/L (3.5-5.1)
[2021-03-11 19:23] LABS: African American GFR (CKD) >90 (>60 ml/min/1.73 sqM); Anion Gap 9 mmol/L; Blood Urea Nitrogen 13 mg/dL (7-17); Calcium 9.2 mg/dL (8.4-10.2); Carbon Dioxide 21 mmol/L (22-30); Chloride 108 mmol/L (98-107); Glucose 90 mg/dL (74-99); Magnesium 1.9 mg/dL (1.6-2.3); Non-African American GFR(CKD) >90 (>60 ml/min/1.73 sqM); Sodium 138 mmol/L (137-145)
[2021-03-11 19:26] LABS: Partial Thromboplastin Time 27.5 sec (22.0-30.0); Prothrombin Time 10.7 sec (9.0-12.0)
[2021-03-11 19:30] LABS: HCG,Qualitative Serum Not Detected
--- NOTE | 2021-03-11 20:32 | ED ---
General Adult HPI - General Chief complaint: Vaginal Bleeding Stated complaint: Vaginal bleeding Time Seen by Provider: 03/11/21 18:06 Source: patient, RN notes reviewed, old records reviewed Mode of arrival: ambulatory Limitations: no limitations - History of Present Illness Initial comments: Patient is a 25-year-old female with past medical history remarkable for recent LEEP and laparoscopy with cauterization of endometriosis on 02/23/2021. Since th at time, she has been having multiple bloodsoaked pads throughout the day. She states this is been a recurrent issue, and has not improved. She nurses occasional lightheadedness. Denies any other acute complaints at this time. Denies any other vaginal discharge or bleeding. Denies any urinary complaints, abdominal pain, nausea, vomiting, diarrhea. Denies any fevers or chills. She'll follow up with Dr. Valdes in the office on 03/09/2021, at which time Monsel solution was applied to the patient's cervix. She states that this improved for bleeding for a short period time, however and noticed bleeding afterwards again with clots. Called the office today and she was instructed to come the emergency department for further evaluation. - Related Data Previous Rx's Medication Instructions Recorded Sulfamethox-Tmp 800-160Mg [Bactrim 1 tab PO Q12HR 5 Days #10 tab 03/11/21 DS 800-160 mg] Allergies Allergy/AdvReac Type Severity Reaction Status Date / Time Penicillins Allergy Severe hives & SOB Verified 03/11/21 18:49 Review of Systems ROS Statement: Those systems with pertinent positive or pertinent negative responses have been documented in the HPI. Review of Systems: CONST: Denies fever EYES: Denies blurry vision ENT: Denies nasal congestion C/V: Denies Chest pain RESP: Denies shortness of breath GI: Denies abdominal pain : Endorses vaginal bleeding SKIN: Denies rash. MSK: Denies joint pain. NEURO: Denies headache ROS Other: All systems not noted in ROS Statement are negative. Past Medical History Past Medical History: Asthma Additional Past Medical History / Comment(s): Asthma as child. Hypoglycemic. Poss endometriosis, abn PAP tests, abd pain, heavy menses History of Any Multi-Drug Resistant Organisms: None Reported Past Surgical History: No Surgical Hx Reported Additional Past Surgical History / Comment(s): [place] teeth. Colonoscopy, LEEP Past Anesthesia/Blood Transfusion Reactions: Motion Sickness Past Psychological History: Anxiety, Depression Smoking Status: Former smoker, Vaper Past Alcohol Use History: None Reported Past Drug Use History: None Reported - Past Family History Mother Family Medical History: Cancer, Hypertension Additional Family Medical History / Comment(s): Cervical cancer; poss blood clot. (Mat Grandmother had ca- brain, lung, ovarian) Father Family Medical History: Cancer, Hypertension Additional Family Medical History / Comment(s): skin, lung cancer General Exam - General Exam Comments Initial Comments: General: Appears in no acute distress. HEAD: Normal with no signs of head trauma. EYES: PERRLA, EOMI, conjunctiva normal, no discharge. ENT: Hearing grossly intact, normal oropharynx. RESPIRATORY: Clear breath sounds bilaterally. No wheezes, rales, or rhonchi. C/V: Tachycardic in triage, improved in the room. S1 and S2 auscultated, no edema, peripheral pulses 2+ and intact throughout ABD: Abd is soft, nontender, nondistended EXT: Normal range of motion, no obvious deformity SKIN: No rashes or lesions observed on exposed skin. NEURO: Alert and oriented 4. No focal deficits. Limitations: no limitations Course Vital Signs 03/11/21 03/11/21 03/11/21 17:55 18:58 20:51 Temperature 100.2 F H 98.6 F Pulse Rate 118 H 77 Respiratory 20 14 Rate Blood Pressure 116/80 106/63 O2 Sat by Pulse 98 99 Oximetry Medical Decision Making - Medical Decision Making Based on patient's presentation and physical exam, I'm concerned for possible dysfunctional uterine bleeding, as well as anemia. We will obtain basic laboratory studies, urinalysis, perform a pelvic exam. Patient was in agreement this plan. She declines analgesia at this time. I did speak with the on-call SOLAR DESIGNER covering for Dr. Valdes, Dr. Haas who was in agreement with the pelvic exam, and recommended that we apply yu swabs with Monsel solution to stop the bleeding. Uterine ultrasound also be obtained to rule out the possibility of i ntrauterine bleeding. I discussed with the patient and she requests the ultrasound if possible in addition to the pelvic. I believe this is reasonable. This will be obtained following pelvic exam. Pelvic exam was performed by myself in the presence of a female staff member. Pelvic revealed clot formation over the cervix with mildly active bleeding sites over the anterior and posterior aspect of the cervix. Monsel solution was applied with swabs with direct pressure from swabs, and bleeding did stop. Patient's laboratory studies were remarkable for a normal hemoglobin of 12.3. Coags were within normal limits. Urinalysis is concerning for 8 WBCs, large amount of blood which is likely secondary to some bleeding, as well as moderate leukocyte esterase. Remainder of the labs are unremarkable.Patient's ultrasound revealed post ablation changes of Endometrium without evidence for acute pelvic process. On reevaluation, patient remains stable. Vital signs obtained at triage her suspect, and repeat vital signs are within normal limits. Patient is not febrile, heart rate is improved. Remaining vital signs are stable and within normal limits at this time. I discussed the findings of the patient's imaging and laboratory studies with her. I would like to cover her for possible UTI and she was in agreement this plan. She'll be given a dose of Bactrim prior to discharge as well as a prescription for Bactrim twice a day for 5 days. She is a follow-up appointment Dr. Valdes next Sunday. She was in agreement with discharge home.We discussed monitoring her bleeding and return to emergency department if she has any concerns. I will provide the patient with a prescription for Bactrim DS for 5 days twice a day. I instructed the patient to follow up with their PCP in the next 3 days. I provided contact information for follow up with Dr. Valdes. I explained that the patient should return to the emergency department if they experience any worsening symptoms. Strict return precautions were discussed with the patient. The patient expressed understanding of these instructions. I answered all questions that the patient had. The patient was discharged home in good condition with their prescriptions and follow up information. - Lab Data Result diagrams: 03/11/21 19:00 03/11/21 19:00 Lab Results 03/11/21 03/11/21 03/11/21 Range/Units 19:00 19:00 19:00 WBC 6.3 (3.8-10.6) k/uL RBC 3.96 (3.80-5.40) m/uL Hgb 12.3 (11.4-16.0) gm/dL Hct 37.6 (34.0-46.0) % MCV 94.9 (80.0-100.0) fL MCH 31.0 (25.0-35.0) pg MCHC 32.6 (31.0-37.0) g/dL RDW 13.0 (11.5-15.5) % Plt Count 241 (150-450) k/uL MPV 7.7 Neutrophils % 76 % Lymphocytes % 16 % Monocytes % 5 % Eosinophils % 1 % Basophils % 1 % Neutrophils # 4.8 (1.3-7.7) k/uL Lymphocytes # 1.0 (1.0-4.8) k/uL Monocytes # 0.3 (0-1.0) k/uL Eosinophils # 0.1 (0-0.7) k/uL Basophils # 0.0 (0-0.2) k/uL PT (9.0-12.0) sec INR (<1.2) APTT (22.0-30.0) sec Sodium 138 (137-145) mmol/L Potassium 4.2 (3.5-5.1) mmol/L Chloride 108 H (98-107) mmol/L Carbon Dioxide 21 L (22-30) mmol/L Anion Gap 9 mmol/L BUN 13 (7-17) mg/dL Creatinine 0.52 (0.52-1.04) mg/dL Est GFR (CKD-EPI)AfAm >90 (>60 ml/min/1.73 sqM) Est GFR (CKD-EPI)NonAf >90 (>60 ml/min/1.73 sqM) Glucose 90 (74-99) mg/dL Calcium 9.2 (8.4-10.2) mg/dL Magnesium 1.9 (1.6-2.3) mg/dL HCG, Qual Not Detected Urine Color Light Red Urine Appearance Clear (Clear) Urine pH 6.5 (5.0-8.0) Ur Specific [place] 1.022 (1.001-1.035) Urine Protein 1+ H (Negative) Urine Glucose (UA) Negative (Negative) Urine Ketones Negative (Negative) Urine Blood Large H (Negative) Urine Nitrite Negative (Negative) Urine Bilirubin Negative (Negative) Urine Urobilinogen <2.0 (<2.0) mg/dL Ur Leukocyte Esterase Moderate H (Negative) Urine RBC >182 H (0-5) /hpf Urine WBC 28 H (0-5) /hpf Ur Squamous Epith Cells 2 (0-4) /hpf Urine Mucus Occasional H (None) /hpf 03/11/21 Range/Units 19:00 WBC (3.8-10.6) k/uL RBC (3.80-5.40) m/uL Hgb (11.4-16.0) gm/dL Hct (34.0-46.0) % MCV (80.0-100.0) fL MCH (25.0-35.0) pg MCHC (31.0-37.0) g/dL RDW (11.5-15.5) % Plt Count (150-450) k/uL MPV Neutrophils % % Lymphocytes % % Monocytes % % Eosinophils % % Basophils % % Neutrophils # (1.3-7.7) k/uL Lymphocytes # (1.0-4.8) k/uL Monocytes # (0-1.0) k/uL Eosinophils # (0-0.7) k/uL Basophils # (0-0.2) k/uL PT 10.7 (9.0-12.0) sec INR 1.0 (<1.2) APTT 27.5 (22.0-30.0) sec Sodium (137-145) mmol/L Potassium (3.5-5.1) mmol/L Chloride (98-107) mmol/L Carbon Dioxide (22-30) mmol/L Anion Gap mmol/L BUN (7-17) mg/dL Creatinine (0.52-1.04) mg/dL Est GFR (CKD-EPI)AfAm (>60 ml/min/1.73 sqM) Est GFR (CKD-EPI)NonAf (>60 ml/min/1.73 sqM) Glucose (74-99) mg/dL Calcium (8.4-10.2) mg/dL Magnesium (1.6-2.3) mg/dL HCG, Qual Urine Color Urine Appearance (Clear) Urine pH (5.0-8.0) Ur Specific [place] (1.001-1.035) Urine Protein (Negative) Urine Glucose (UA) (Negative) Urine Ketones (Negative) Urine Blood (Negative) Urine Nitrite (Negative) Urine Bilirubin (Negative) Urine Urobilinogen (<2.0) mg/dL Ur Leukocyte Esterase (Negative) Urine RBC (0-5) /hpf Urine WBC (0-5) /hpf Ur Squamous Epith Cells (0-4) /hpf Urine Mucus (None) /hpf Disposition Clinical Impression: Post-op bleeding, Bleeding of cervix, UTI (urinary tract infection) Disposition: HOME SELF-CARE Condition: Good Instructions (If sedation given, give patient instructions): Dysmenorrhea (ED), Urinary Tract Infection in Women (ED) Prescriptions: Sulfamethox-Tmp 800-160Mg [Bactrim DS 800-160 mg] 1 tab PO Q12HR 5 Days #10 tab Is patient prescribed a controlled substance at d/c from ED?: No Referrals: Hubert Randall MD [Primary Care Provider] - 1-2 days Cindi Valdes DO [Doctor of Osteopathic Medicine] - 1-2 days
[2021-03-11 20:52] VITALS: BP 106/63; PULSE 77; RESP 14
--- NOTE | 2021-03-11 20:53 | US ---
EXAMINATION TYPE: US pelvic complete DATE OF EXAM: 03/11/2021 COMPARISON: NONE CLINICAL HISTORY: assess for clotting products in uterus post- surg. Heavy bleeding post endometrial ablation/ cervical leep procedure from 02/23/2021 TECHNIQUE: Transabdominal (TA). Transabdominal sonographic images of the pelvis were acquired. Date of LMP: Unknown due to irregular menstruation EXAM MEASUREMENTS: Uterus: 7.8 x 4.4 x 4.2 cm Endometrial Stripe: Endometrial ablation Right Ovary: 4.0 x 2.3 x 2.0 cm Left Ovary: 3.7 x 3.1 x2.4 cm 1. Uterus: Anteverted wnl 2. Endometrium: Recent ablation 3. Right Ovary: wnl 4. Left Ovary: Anechoic area measuring 1.4 x 1.4 x 1.4cm Spectral, color and waveform doppler imaging shows good arterial and venous flow within the ovaries ; there is no evidence for ovarian torsion. 5. Bilateral Adnexa: wnl 6. Posterior cul-de-sac: wnl No abnormalities seen at this time, Endometrium appears thickened with internal echoes post surgical ablation. IMPRESSION: Post ablation changes to the endometrium without evidence for acute pelvic process.
[2021-03-11] MEDS ORDERED: SULFAMETHOX-TMP 800-160MG 1 EACH TAB PO STA (21:04)
== END 2021-03-11 21:32 | disposition home or self-care (01) ==
LOC: EC 17:44
DX: N93.9 Abnormal uterine and vaginal bleeding, unspecified (principal); N39.0 Urinary tract infection, site not specified; N99.821 Postprocedural hemorrhage of a genitourinary system organ or structure following other procedure; J45.909 Unspecified asthma, uncomplicated; F41.9 Anxiety disorder, unspecified; F32.A Depression, unspecified; Z88.0 Allergy status to penicillin; Z87.891 Personal history of nicotine dependence
CPT/HCPCS: 36415; 76856; 80048; 81001; 83735; 84703; 85025; 85610; 85730; 87086; 99284

== ENCOUNTER 2024-07-19 11:08 | Emergency (ER) | payer OTHER ==
[2024-07-19 11:18] VITALS: TEMP 98.2
--- NOTE | 2024-07-19 11:40 | ED ---
General Adult HPI - General Chief complaint: Vaginal Bleeding Stated complaint: Abdominal Pain Time Seen by Provider: 07/19/24 11:19 Source: patient, RN notes reviewed Mode of arrival: ambulatory Limitations: no limitations - History of Present Illness Initial comments: 29-year-old female presents to the emergency department for suprapubic abdominal pain. Patient states that this is started about 30 minutes ago. She states that she was grocery shopping when it first started. At that time she notes that the pain was a 10 out of 10. Now she reports it is a 4 out of 10. She states that it is a stabbing pain. Patient also endorses abnormal vaginal bleeding it has been going on for 2 months. Denies any fever, chills. Denies any nausea, vomiting. Denies any dysuria, hematuria. - Related Data Previous Rx's Medication Instructions Recorded Sulfamethox-Tmp 800-160Mg [Bactrim 1 tab PO Q12HR 5 Days #10 tab 03/11/21 DS 800-160 mg] Allergies Allergy/AdvReac Type Severity Reaction Status Date / Time Penicillins Allergy Severe hives & SOB Verified 03/11/21 18:49 Review of Systems ROS Statement: Those systems with pertinent positive or pertinent negative responses have been documented in the HPI. ROS Other: All systems not noted in ROS Statement are negative. Past Medical History Past Medical History: Asthma Additional Past Medical History / Comment(s): Asthma as child. Hypoglycemic. Poss endometriosis, abn PAP tests, abd pain, heavy menses History of Any Multi-Drug Resistant Organisms: None Reported Past Surgical History: No Surgical Hx Reported Additional Past Surgical History / Comment(s): [place] teeth. Colonoscopy, LEEP Past Anesthesia/Blood Transfusion Reactions: Motion Sickness Past Psychological History: Anxiety, Depression Smoking Status: Former smoker, Vaper Past Alcohol Use History: None Reported Past Drug Use History: None Reported - Past Family History Mother Family Medical History: Cancer, Hypertension Additional Family Medical History / Comment(s): Cervical cancer; poss blood clot. (Mat Grandmother had ca- brain, lung, ovarian) Father Family Medical History: Cancer, Hypertension Additional Family Medical History / Comment(s): skin, lung cancer General Exam Limitations: no limitations General appearance: alert, in no apparent distress Head exam: Present: atraumatic, normocephalic, normal inspection Eye exam: Present: normal appearance, PERRL, EOMI. Absent: scleral icterus, conjunctival injection, periorbital swelling Neck exam: Present: normal inspection. Absent: tenderness, meningismus, lymphadenopathy Respiratory exam: Present: normal lung sounds bilaterally. Absent: respiratory distress, wheezes, rales, rhonchi, stridor Cardiovascular Exam: Present: regular rate, normal rhythm, normal heart sounds. Absent: systolic murmur, diastolic murmur, rubs, gallop, clicks GI/Abdominal exam: Present: soft, tenderness, normal bowel sounds. Absent: distended, guarding, rebound, rigid Extremities exam: Present: normal inspection, full ROM, normal capillary refill. Absent: tenderness, pedal edema, joint swelling, calf tenderness Back exam: Present: normal inspection Neurological exam: Present: alert, oriented X3 Psychiatric exam: Present: normal affect, normal mood Skin exam: Present: warm, dry, intact, normal color. Absent: rash Course Vital Signs 07/19/24 11:15 Temperature 98.2 F Pulse Rate 86 Respiratory 16 Rate Blood Pressure 112/76 O2 Sat by Pulse 98 Oximetry Medical Decision Making - Medical Decision Making Was pt. sent in by a medical professional or institution (MORENITA Soliz, SATELLITE COMMUNICATIONS OPERATOR, urgent care, hospital, or group home...) When possible be specific @ -[No] Did you speak to anyone other than the patient for history (EMS, parent, family, police, friend...)? What history was obtained from this source @ -[No] Did you review nursing and triage notes (agree or disagree)? Why? @ -[I reviewed and agree with nursing and triage notes] Were old charts reviewed (outside hosp., previous admission, EMS record, old EKG, old radiological studies, urgent care reports/EKG's, group home records)? Report findings @ -[No old charts were reviewed] Differential Diagnosis (chest pain, altered mental status, abdominal pain women, abdominal pain men, vaginal bleeding, weakness, fever, dyspnea, syncope, headache, dizziness, GI bleed, back pain, seizure, CVA, palpatations, mental health, musculoskeletal)? @ -[Differential Abdominal Pain Women: Appendicitis, Cholecystitis, diverticulosis, ischemic bowel, pancreatitis, hepatitis, UTI, gastroenteritis, AAA, incarcerated hernia, bowel obstruction, constipation, inflammatory bowel, hepatitis, peptic ulcer disease, splenic infarction, perforated viscus, vulvitis, ovarian torsion, PID, kidney stone, placenta abruption, this is not meant to be an all-inclusive list ] EKG interpreted by me (3pts min.). @ -None X-rays interpreted by me (1pt min.). @ -[None done] CT interpreted by me (1pt min.). @ -[None done] U/S interpreted by me (1pt. min.). @ -[None done] What testing was considered but not performed or refused? (CT, X-rays, U/S, labs)? Why? @ -[None] What meds were considered but not given or refused? Why? @ -[None] Did you discuss the management of the patient with other professionals (professionals i.e. , PA, SATELLITE COMMUNICATIONS OPERATOR, lab, RT, psych nurse, social service director, powerhouse mechanic supervisor, teacher, records officer, rn case manager hospice)? Give summary @ -[No] Was smoking cessation discussed for >3mins.? @ -[No] Was critical care preformed (if so, how long)? @ -[No] Were there social determinants of health that impacted care today? How? (Homelessness, low income, unemployed, alcoholism, drug addiction, transportation, low edu. Level, literacy, decrease access to med. care, skilled nursing, rehab)? @ -[No] Was there de-escalation of care discussed even if they declined (Discuss DNR or withdrawal of care, Hospice)? DNR status @ -[No] What co-morbidities impacted this encounter? (DM, HTN, Smoking, COPD, CAD, Cancer, CVA, ARF, Chemo, Hep., AIDS, mental health diagnosis, sleep apnea, morbid obesity)? @ -[None] Was patient admitted / discharged? Hospital course, mention meds given and route, prescriptions, significant lab abnormalities, going to OR and other pertinent info. @ -[hospital course] Undiagnosed new problem with uncertain prognosis? @ -[No] Drug Therapy requiring intensive monitoring for toxicity (Heparin, Nitro, Insulin, Cardizem)? @ -[No] Were any procedures done? @ -[No] Diagnosis/symptom? @ -[default] Acute, or Chronic, or Acute on Chronic? @ -[default] Uncomplicated (without systemic symptoms) or Complicated (systemic symptoms)? @ -[default] Side effects of treatment? @ -[No] Exacerbation, Progression, or Severe Exacerbation? @ -[No] Poses a threat to life or bodily function? How? (Chest pain, USA, OR, pneumonia, PE, COPD, DKA, ARF, appy, cholecystitis, CVA, Diverticulitis, Homicidal, Suicidal, threat to staff... and all critical care pts) @ -[No] - Lab Data Result diagrams: 07/19/24 11:51 07/19/24 11:51 Lab Results 07/19/24 07/19/24 07/19/24 Range/Units 11:51 11:51 11:51 WBC 4.30 L (4.50-10.00) 10*3/uL RBC 4.32 (4.10-5.20) 10*6/uL Hgb 14.0 (12.0-15.0) g/dL Hct 40.3 (37.2-46.3) % MCV 93.3 (80.0-97.0) fL MCH 32.4 H (27.0-32.0) pg MCHC 34.7 (32.0-37.0) g/dL Plt Count 195 (140-440) 10*3/uL MPV 10.0 (9.5-12.2) fL Immature Gran % (Auto) 0 % Neutrophils % 62.2 % Lymphocytes % 28.6 % Monocytes % 6.7 % Eosinophils % 1.6 % Basophils % 0.9 % Immature Gran # 0.00 (0.00-0.04) 10*3/uL Neutrophils # 2.67 (1.80-7.70) 10*3/uL Lymphocytes # 1.23 (0.90-5.00) 10*3/uL Monocytes # 0.29 (0.20-1.00) 10*3/uL Eosinophils # 0.07 (0.04-0.35) 10*3/uL Basophils # 0.04 (0.00-0.10) 10*3/uL Sodium 138 (137-145) mmol/L Potassium 4.4 (3.5-5.1) mmol/L Chloride 107 (98-107) mmol/L Carbon Dioxide 19 L (22-30) mmol/L Anion Gap 12 mmol/L BUN 15 (7-17) mg/dL Creatinine 0.72 (0.52-1.04) mg/dL Est GFR (CKD-EPI)AfAm >90 (>60 ml/min/1.73 sqM) Est GFR (CKD-EPI)NonAf >90 (>60 ml/min/1.73 sqM) Glucose 85 (74-99) mg/dL Calcium 9.6 (8.4-10.2) mg/dL Total Bilirubin 0.6 (0.2-1.3) mg/dL AST 22 (14-36) U/L ALT 15 (4-34) U/L Alkaline Phosphatase 46 (38-126) U/L Total Protein 7.1 (6.3-8.2) g/dL Albumin 4.5 (3.5-5.0) g/dL Amylase 74 (30-110) U/L Lipase 157 (23-300) U/L Urine Color Light Yellow Urine Appearance Clear (Clear) Urine pH 5.5 (5.0-8.0) Ur Specific [place] 1.020 (1.001-1.035) Urine Protein Negative (Negative) Urine Glucose (UA) Negative (Negative) Urine Ketones Negative (Negative) Urine Blood Moderate H (Negative) Urine Nitrite Negative (Negative) Urine Bilirubin Negative (Negative) Urine Urobilinogen <2.0 (<2.0) mg/dL Ur Leukocyte Esterase Negative (Negative) Urine RBC 2 (0-5) /hpf Urine WBC 3 (0-5) /hpf Ur Squamous Epith Cells 1 (0-4) /hpf Urine Mucus Rare H (None) /hpf Urine HCG, Qual (Not Detectd) 07/19/24 Range/Units 11:51 WBC (4.50-10.00) 10*3/uL RBC (4.10-5.20) 10*6/uL Hgb (12.0-15.0) g/dL Hct (37.2-46.3) % MCV (80.0-97.0) fL MCH (27.0-32.0) pg MCHC (32.0-37.0) g/dL Plt Count (140-440) 10*3/uL MPV (9.5-12.2) fL Immature Gran % (Auto) % Neutrophils % % Lymphocytes % % Monocytes % % Eosinophils % % Basophils % % Immature Gran # (0.00-0.04) 10*3/uL Neutrophils # (1.80-7.70) 10*3/uL Lymphocytes # (0.90-5.00) 10*3/uL Monocytes # (0.20-1.00) 10*3/uL Eosinophils # (0.04-0.35) 10*3/uL Basophils # (0.00-0.10) 10*3/uL Sodium (137-145) mmol/L Potassium (3.5-5.1) mmol/L Chloride (98-107) mmol/L Carbon Dioxide (22-30) mmol/L Anion Gap mmol/L BUN (7-17) mg/dL Creatinine (0.52-1.04) mg/dL Est GFR (CKD-EPI)AfAm (>60 ml/min/1.73 sqM) Est GFR (CKD-EPI)NonAf (>60 ml/min/1.73 sqM) Glucose (74-99) mg/dL Calcium (8.4-10.2) mg/dL Total Bilirubin (0.2-1.3) mg/dL AST (14-36) U/L ALT (4-34) U/L Alkaline Phosphatase (38-126) U/L Total Protein (6.3-8.2) g/dL Albumin (3.5-5.0) g/dL Amylase (30-110) U/L Lipase (23-300) U/L Urine Color Urine Appearance (Clear) Urine pH (5.0-8.0) Ur Specific [place] (1.001-1.035) Urine Protein (Negative) Urine Glucose (UA) (Negative) Urine Ketones (Negative) Urine Blood (Negative) Urine Nitrite (Negative) Urine Bilirubin (Negative) Urine Urobilinogen (<2.0) mg/dL Ur Leukocyte Esterase (Negative) Urine RBC (0-5) /hpf Urine WBC (0-5) /hpf Ur Squamous Epith Cells (0-4) /hpf Urine Mucus (None) /hpf Urine HCG, Qual Not Detected (Not Detectd) Disposition Clinical Impression: Dysfunctional uterine bleeding, Suprapubic pain Disposition: HOME SELF-CARE Condition: Stable Instructions (If sedation given, give patient instructions): Dysmenorrhea (ED) Additional Instructions: Please follow up with your doctor. Return to the emergency department for new or worsening symptoms. Is patient prescribed a controlled substance at d/c from ED?: No Referrals: None,Stated [REFERRING] - 1-2 days
[2024-07-19 12:02] LABS: Basophils # (A) 0.04 10*3/uL (0.00-0.10); Basophils % (A) 0.9 %; Eosinophils # (A) 0.07 10*3/uL (0.04-0.35); Eosinophils % (A) 1.6 %; HCT 40.3 % (37.2-46.3); Lymphocytes # (A) 1.23 10*3/uL (0.90-5.00); Lymphocytes % (A) 28.6 %; MCH 32.4 pg (27.0-32.0); MCHC 34.7 g/dL (32.0-37.0); MCV 93.3 fL (80.0-97.0); Monocytes # (A) 0.29 10*3/uL (0.20-1.00); Monocytes % (A) 6.7 %; Neutrophils # (A) 2.67 10*3/uL (1.80-7.70); Neutrophils % (A) 62.2 %; Platelet Count 195 10*3/uL (140-440); RBC 4.32 10*6/uL (4.10-5.20); RDW 11.7 % (11.5-14.5)
[2024-07-19 12:29] LABS: Appearance,Urine Clear (Clear); Bilirubin,Urine Negative (Negative); Blood,Urine Moderate (Negative); Color,Urine Light Yellow; Glucose,Urine (UA) Negative (Negative); Ketones,Urine Negative (Negative); Leukocyte Esterase,Urine Negative (Negative); Mucus,Urine Rare /hpf; Nitrite,Urine Negative (Negative); PH, Urine 5.5 (5.0-8.0); Protein,Urine Negative (Negative); RBC,Urine 2 /hpf (0-5); Squamous Epithelial Cell,Urine 1 /hpf (0-4); Urobilinogen,Urine <2.0 mg/dL (<2.0); WBC,Urine 3 /hpf (0-5)
[2024-07-19 12:36] LABS: ALT 15 U/L (4-34); AST 22 U/L (14-36); African American GFR (CKD) >90 (>60 ml/min/1.73 sqM); Albumin 4.5 g/dL (3.5-5.0); Alkaline Phosphatase 46 U/L (38-126); Amylase 74 U/L (30-110); Anion Gap 12 mmol/L; Blood Urea Nitrogen 15 mg/dL (7-17); Calcium 9.6 mg/dL (8.4-10.2); Carbon Dioxide 19 mmol/L (22-30); Chloride 107 mmol/L (98-107); Glucose 85 mg/dL (74-99); Lipase 157 U/L (23-300); Non-African American GFR(CKD) >90 (>60 ml/min/1.73 sqM); Potassium 4.4 mmol/L (3.5-5.1); Sodium 138 mmol/L (137-145); Total Bilirubin 0.6 mg/dL (0.2-1.3); Total Protein 7.1 g/dL (6.3-8.2)
--- NOTE | 2024-07-19 12:38 | US ---
EXAMINATION TYPE: US transvaginal DATE OF EXAM: 07/19/2024 COMPARISON: NONE CLINICAL INDICATION: Female, 29 years old with history of pain, vb; Bleeding for 2 months, not uncomm on for patient, h/o endometriosis, PCOS, ablation, TECHNIQUE: TV. Transvaginal sonographic images FINDINGS: Date of LMP: Unknown, h/o ablation but irregular bleeding is constant EXAM MEASUREMENTS: Uterus: 8.6 x 5.0 x 3.9 cm Endometrial Stripe: 1.2 cm Right Ovary: 4.2 x 2.9 x 28 cm Left Ovary: 4.8 x 4.2 x 2.3 cm 1. Uterus: Anteverted wnl 2. Endometrium: wnl 3. Right Ovary: multiple follicles seen, wnl 4. Left Ovary: multiple follicles seen, largest = 1.2cm Spectral, color and waveform doppler imaging shows good arterial and venous flow within the ovaries ; there is no evidence for ovarian torsion. 5. Bilateral Adnexa: wnl 6. Posterior cul-de-sac: wnl IMPRESSION: 1. Multiple bilateral ovarian follicles. O-RADS 2021 [email or web address] [facility], , 07/19/2024 12:36 PM
[2024-07-19 13:31] VITALS: BP 115/85; PULSE 81; RESP 18
== END 2024-07-19 13:32 | disposition home or self-care (01) ==
LOC: EC 11:08
DX: N93.8 Other specified abnormal uterine and vaginal bleeding (principal); F17.290 Nicotine dependence, other tobacco product, uncomplicated; Z88.0 Allergy status to penicillin
CPT/HCPCS: 36415; 76830; 80053; 81001; 81025; 82150; 83690; 85025; 93975; 99284